=== PATIENT | female | born 2000 | race Two or more races ===

== ENCOUNTER 2022-11-10 09:03 | Emergency (ER) | payer OTHER ==
[~2022-11-10] VITALS: Ht 154.9 cm; Wt 63.5 kg
== END 2022-11-10 09:45 | disposition home or self-care (01) ==
LOC: ER 09:03
DX: L30.9 Dermatitis, unspecified (principal); Z91.018 Allergy to other foods; Z88.9 Allergy status to unspecified drugs, medicaments and biological substances

== ENCOUNTER 2023-04-18 16:35 | Emergency (ER) | payer OTHER ==
[~2023-04-18] VITALS: Ht 154.9 cm; Wt 52.2 kg
[2023-04-18 19:17] LABS: HEMATOCRIT 36.1 % (36.0-45.00); MEAN CELL VOLUME 81.4 fL (80.00-100.00); MEAN CORPUSCULAR HGB CONC 33.2 g/dl (32.0-36.0); PLATELET COUNT 291 K/uL (150-450); RED BLOOD COUNT 4.43 M/uL (4.00-6.00)
[2023-04-18 19:19] LABS: RED CELL DISTRIBUTION WIDTH 18.3 % (11.5-14.5)
[2023-04-18 19:20] LABS: PH,URINE 6.5 (5.0-8.0); URINE APPEARANCE Clear; URINE BILIRRUBIN Negative (NEGATIVE); URINE BLOOD Trace; URINE COLOR Yellow; URINE GLUCOSE Negative (NEGATIVE); URINE LEUKOCYTE Small; URINE NITRATE Negative; URINE PROTEIN Negative (NEGATIVE)
[2023-04-18 19:27] LABS: URINE BACTERIA 845.2 uL (0.0-1933); URINE EPITHELIAL CELLS 7.8 uL (0.0-38.8); URINE WBC 146.2 uL (0.0-23.2)
[2023-04-18 19:29] LABS: URINE RBC 1.1 uL (0.0-20.8)
[2023-04-18 19:53] LABS: BILIRUBIN TOTAL 0.25 mg/dL (0.3-1.2); CALCIUM 9.2 mg/dL (8.5-10.1); CREATININE SERUM 0.68 mg/dL (0.55-1.02); GFR 107.22; GLOBULINA 3.5 G/DL (2.4-3.5); POTASSIUM 4.01 mEq/L (3.5-5.1); TOTAL PROTEIN 7.5 gm/dL (6.4-8.2)
[2023-04-18] MEDS ORDERED: BACTRIM DS TAB1 EACH PO (20:13)
== END 2023-04-18 20:24 | disposition home or self-care (01) ==
LOC: ER 16:35
PROVIDERS: General Practice
DX: N39.0 Urinary tract infection, site not specified (principal); Z88.8 Allergy status to other drugs, medicaments and biological substances; Z20.822 Contact with and (suspected) exposure to COVID-19

== ENCOUNTER 2024-02-05 01:25 | Emergency (ER) | payer OTHER ==
[~2024-02-05] VITALS: Ht 154.9 cm; Wt 46.7 kg
[~2024-02-05 01:25] MED LIST: BACTRIM DS TAB1 EACH PO
[2024-02-05] MEDS ORDERED: ADDERALL 20 MG20 MG PO (01:31)
[2024-02-05] MEDS ORDERED: RESTORIL30 MG PO (01:31)
[2024-02-05] MEDS ORDERED: KETOROLAC TROMETHAMINE 60 MG VIAL IM STA (03:10)
[2024-02-05] MEDS ORDERED: KETOROLAC TROMETHAMINE 60 MG VIAL IM ONE (03:19)
[2024-02-05] MEDS ORDERED: KETO10TA2 PO (04:07)
== END 2024-02-05 04:45 ==
LOC: ER 01:26
DX: S16.1XXA Strain of muscle, fascia and tendon at neck level, initial encounter (principal); S09.90XA Unspecified injury of head, initial encounter; S29.9XXA Unspecified injury of thorax, initial encounter; W19.XXXA Unspecified fall, initial encounter; Y93.52 Activity, horseback riding; Y92.89 Other specified places as the place of occurrence of the external cause; Y99.8 Other external cause status; Z91.018 Allergy to other foods

== ENCOUNTER 2024-02-08 08:18 | Emergency (ER) | payer OTHER ==
[~2024-02-08] VITALS: Ht 154.9 cm; Wt 46.7 kg
[~2024-02-08 08:18] MED LIST changes: +ADDERALL 20 MG20 MG PO; +KETO10TA2 PO; +RESTORIL30 MG PO
[2024-02-08] MEDS ORDERED: KETOROLAC TROMETHAMINE 30 MG VIAL IM ONE (09:30)
[2024-02-08] MEDS ORDERED: KETOROLAC TROMETHAMINE 30 MG VIAL ONE (09:32)
== END 2024-02-08 15:00 | disposition home or self-care (01) ==
LOC: ER 08:20
DX: S29.8XXA Other specified injuries of thorax, initial encounter (principal); W19.XXXA Unspecified fall, initial encounter; Y93.52 Activity, horseback riding; Y92.89 Other specified places as the place of occurrence of the external cause; Y99.8 Other external cause status; Z91.013 Allergy to seafood

== ENCOUNTER 2024-09-08 16:57 | Emergency (ER) | payer OTHER ==
[~2024-09-08] VITALS: Ht 154.9 cm; Wt 61.2 kg
[2024-09-08] MEDS ORDERED: OxyCODONE HCL/APAP UD (PERCOCET) PO ONE (17:30)
[2024-09-08] MEDS ORDERED: TRAMADOL HCL 50 MG TABLET PO ONE (18:30)
== END 2024-09-08 19:28 | disposition home or self-care (01) ==
LOC: ER 16:57
DX: S82.291A Other fracture of shaft of right tibia, initial encounter for closed fracture (principal); V80.010A Animal-rider injured by fall from or being thrown from horse in noncollision accident, initial encounter; Y93.89 Activity, other specified; Y92.89 Other specified places as the place of occurrence of the external cause; Y99.8 Other external cause status; Z91.013 Allergy to seafood

== ENCOUNTER 2024-09-09 12:58 | Outpatient (CLI) | payer OTHER | END 2024-09-09 13:09 | disposition home or self-care (01) | LOC: RAD 12:58 | PROVIDERS: ATTEND Orthopaedic Surgery | DX: S82.871A Displaced pilon fracture of right tibia, initial encounter for closed fracture (principal) ==

== ENCOUNTER 2024-09-13 12:30 | Outpatient (CLI) | payer OTHER | END 2024-09-13 12:35 | disposition home or self-care (01) | LOC: TOM 12:30 | PROVIDERS: ATTEND Orthopaedic Surgery | DX: S82.871A Displaced pilon fracture of right tibia, initial encounter for closed fracture (principal) ==

== ENCOUNTER 2024-09-20 11:08 | Outpatient (CLI) | payer OTHER | END 2024-09-20 11:20 | disposition home or self-care (01) | LOC: RAD 11:08 | PROVIDERS: ATTEND Orthopaedic Surgery | DX: S82.871A Displaced pilon fracture of right tibia, initial encounter for closed fracture (principal) ==

== ENCOUNTER 2024-09-28 09:49 | Outpatient (CLI) | payer OTHER | END 2024-09-28 09:57 | disposition home or self-care (01) | LOC: RAD 09:49 | PROVIDERS: ATTEND Orthopaedic Surgery | DX: S82.871A Displaced pilon fracture of right tibia, initial encounter for closed fracture (principal); X58.XXXA Exposure to other specified factors, initial encounter; Y93.9 Activity, unspecified; Y92.9 Unspecified place or not applicable; Y99.9 Unspecified external cause status ==

== ENCOUNTER 2024-10-27 10:31 | Outpatient (CLI) | payer OTHER | END 2024-10-27 10:37 | disposition home or self-care (01) | LOC: RAD 10:31 | PROVIDERS: ATTEND Orthopaedic Surgery | DX: S82.871A Displaced pilon fracture of right tibia, initial encounter for closed fracture (principal) ==

== ENCOUNTER 2024-12-01 10:10 | Outpatient (CLI) | payer OTHER | END 2024-12-01 10:29 | disposition home or self-care (01) | LOC: RAD 10:10 | PROVIDERS: ATTEND Orthopaedic Surgery | DX: S82.871D Displaced pilon fracture of right tibia, subsequent encounter for closed fracture with routine healing (principal) ==

== ENCOUNTER 2024-12-30 11:57 | Outpatient (CLI) | payer OTHER | END 2024-12-30 12:04 | disposition home or self-care (01) | LOC: RAD 11:57 | PROVIDERS: ATTEND Orthopaedic Surgery | DX: S82.871D Displaced pilon fracture of right tibia, subsequent encounter for closed fracture with routine healing (principal) ==

== ENCOUNTER 2025-01-21 13:37 | Emergency (ER) | payer OTHER ==
[~2025-01-21] VITALS: Ht 154.9 cm; Wt 56.2 kg
[2025-01-21] MEDS ORDERED: EFFEXOR XR37.5 MG PO (13:40)
[2025-01-21] MEDS ORDERED: CLONAZEPAM0.125 MG (13:40)
[2025-01-21] MEDS ORDERED: OLANZAPINE2.5 MG PO (13:41)
[2025-01-21] MEDS ORDERED: KETOROLAC TROMETHAMINE 30 MG VIAL IM ONE (15:15)
[2025-01-21] MEDS ORDERED: DICLOFENAC SODI50 MG PO (15:39)
== END 2025-01-21 16:15 | disposition home or self-care (01) ==
LOC: ER 13:37
DX: S93.602A Unspecified sprain of left foot, initial encounter (principal); X58.XXXA Exposure to other specified factors, initial encounter; Y93.89 Activity, other specified; Y92.89 Other specified places as the place of occurrence of the external cause; Y99.9 Unspecified external cause status; Z88.8 Allergy status to other drugs, medicaments and biological substances; Z87.09 Personal history of other diseases of the respiratory system; Z91.013 Allergy to seafood

== ENCOUNTER 2025-04-07 11:17 | Inpatient (IN) | payer OTHER ==
[~2025-04-07] VITALS: Ht 152.4 cm; Wt 59.0 kg
[~2025-04-07 11:17] MED LIST changes: +CLONAZEPAM0.125 MG; +DICLOFENAC SODI50 MG PO; +EFFEXOR XR37.5 MG PO; +OLANZAPINE2.5 MG PO
[2025-04-07] MEDS ORDERED: LEVALBUTEROL HCL 1.25 MG/3 ML SOLUTION IH ONE ×2 (11:36→17:53)
[2025-04-07] MEDS ORDERED: IPRATROPIUM BROMIDE 0.5 MG/2.5 ML AMPUL.NEB IH ONE ×2 (11:37→17:53)
[2025-04-07] MEDS ORDERED: CEFTRIAXONE SODIUM 1,000 MG VIAL IV ONE (11:45)
[2025-04-07] MEDS ORDERED: LEVALBUTEROL HCL 1.25 MG/3 ML SOLUTION IH SCH ×2 (11:45→21:00)
[2025-04-07] MEDS ORDERED: METHYLPREDNISOLONE SOD SUCC 125 MG VIAL IV ONE (11:45)
[2025-04-07] MEDS ORDERED: IPRATROPIUM BROMIDE 0.5 MG/2.5 ML AMPUL.NEB IH SCH ×2 (11:45→21:00)
[2025-04-07] MEDS ORDERED: MAGNESIUM SULFATE IN WATER 50 ML IV ONE (11:45)
[2025-04-07] MEDS ORDERED: MAGNESIUM SULFATE 50% 1,000 MG/2 ML VIAL ONE (11:50)
[2025-04-07] MEDS ORDERED: CEFTRIAXONE SODIUM 1,000 MG VIAL ONE ×2 (11:50→12:03)
--- NOTE | 2025-04-07 12:28 | NUR ---
SE RECIBE PACIENTE ALERTA Y ORIENTADA X3, AL MOMENTO PRESENTANDO DIFICULTAD RESPIRATORIA, SE COLOCA PACIENTE EN MONITOR CARDIACO Y OXIMETRIA DE PULSO, SE REALIZA EKG, SE COLOCA CANULA NASAL Y SE NOTIFICA A PERSONAL DE TERAPIA. SE MANTIENE BAJO OBSRVACION PARA CONTINUACION DE TRATAMIENTO.
[2025-04-07 12:39] LABS: BASO % 0.1 % (0.1-1.2); EOS # 0.11 (0.04-0.54); EOS % 0.5 % (0.7-7.0); LYMPH # 1.93 (1.18-3.74); LYMPH % 9.0 % (19.3-53.1); MEAN PLATELET VOLUME 9.90 fl (9.4-12.4); MONO # 0.70 (0.24-0.82); MONO % 3.2 % (4.7-12.5); NEUT # 18.69 (1.56-6.13); NEUT % 86.7 % (34.0-71.1); RED CELL DISTRIBUTION WIDTH 13.7 % (11.6-14.4)
--- NOTE | 2025-04-07 12:41 | NUR ---
SE REALIZA COLECCION DE MUESTRAS MAUREEN ORDEN MEDICA Y SE MANTIENE BAJO OBSERVACION.
[2025-04-07 12:44] LABS: ERYTHROCYTE SEDIMENTATION RATE 27 mm/hr (0-20)
[2025-04-07 13:02] LABS: BUN CREA RATIO 10.0 (7.0-25.0); CREATININE SERUM 0.91 mg/dL (0.55-1.02); GFR 75.32; GLUCOSE FASTING 105.0 mg/dL (65-100); OSMOLALITY SERUM 280.0 MOSM/KG (275-295)
[2025-04-07 13:05] LABS: INR 1.04
[2025-04-07 14:13] LABS: COVID-19 AG NEGATIVE (NEGATIVE)
--- NOTE | 2025-04-07 15:16 | NUR ---
SE RECIBE PTE ALERTA Y ORIENTADA X3 EN DESCANSO EN CAMA CON BARANDAS LEVADAS. CONECTADA A MONITOR CARDIACO Y SATUROMETRO. CANALIZADA EN BRAZO DERECHO CON ANGIO #18 PATENTE NIRU DE EDEMA Y ENROJEICMIENTO EN H/L.PTE NO REFIERE NI QUEJAS NI MOESLTIA AL MOMENTO. SE MANTIENE BAJO OBSERVACION POR TRATAMIENTO. PENDIENTE CONSULTA CON DR. MENJIVAR.
[2025-04-07] MEDS ORDERED: ACETAMINOPHEN 500 MG GEL..CAP PO ONE (16:24)
[2025-04-07] MEDS ORDERED: ACETAMINOPHEN 325 MG TABLET PO PRN (17:30)
[2025-04-07] MEDS ORDERED: ONDANSETRON HCL 4 MG in 0.9 % SODIUM CHLORIDE 50 ML IV PRN (17:30)
[2025-04-07] MEDS ORDERED: METHYLPREDNISOLONE SOD SUCC 40 MG VIAL ONE (17:53)
[2025-04-07] MEDS ORDERED: METHYLPREDNISOLONE SOD SUCC 40 MG VIAL IV SCH (18:00)
[2025-04-07 22:48] VITALS: O2SAT 92
[2025-04-08] VITALS (9 sets, daily range): BP systolic 95–114; BP diastolic 57–76; O2SAT 91–97
[2025-04-08 06:33] LABS: BASO % 0.1 % (0.1-1.2); EOS # 0.00 (0.04-0.54); EOS % 0.0 % (0.7-7.0); LYMPH # 1.04 (1.18-3.74); LYMPH % 4.9 % (19.3-53.1); MEAN PLATELET VOLUME 10.30 fl (9.4-12.4); MONO # 0.68 (0.24-0.82); MONO % 3.2 % (4.7-12.5); NEUT # 19.53 (1.56-6.13); NEUT % 91.3 % (34.0-71.1); RED CELL DISTRIBUTION WIDTH 14.0 % (11.6-14.4)
[2025-04-08 06:56] LABS: BUN CREA RATIO 22.0 (7.0-25.0); CREATININE SERUM 0.72 mg/dL (0.55-1.02); GFR 98.69; GLUCOSE FASTING 112.0 mg/dL (65-100); OSMOLALITY SERUM 281.0 MOSM/KG (275-295)
[2025-04-08] MEDS ORDERED: ACETAMINOPHEN 500 MG GEL..CAP PO PRN (07:45)
[2025-04-08 07:49] LABS: ERYTHROCYTE SEDIMENTATION RATE 23 mm/hr (0-20)
[2025-04-08] MEDS ORDERED: AZITHROMYCIN 500 MG VIAL IV ONE (08:02)
[2025-04-08] MEDS ORDERED: AZITHROMYCIN 500 MG VIAL IV SCH (09:00)
[2025-04-08] MEDS ORDERED: CEFTRIAXONE SODIUM 2,000 MG in 0.9 % SODIUM CHLORIDE 100 ML IV SCH (09:00)
[2025-04-08] MEDS ORDERED: FAMOTIDINE/PF 20 MG/2 ML VIAL IV SCH (09:00)
[2025-04-08] MEDS ORDERED: MONTELUKAST SODIUM 10 MG TABLET PO SCH (17:00)
[2025-04-08] MEDS ORDERED: LACTOBACILLUS ACIDOPHILUS 1 CAP CAP PO SCH (17:00)
[2025-04-09 03:34] VITALS: BP 111/69; O2SAT 97
[2025-04-09 04:00] VITALS: O2SAT 96
[2025-04-09] MEDS ORDERED: AZITHROMYCIN 500 MG VIAL IV ONE (07:44)
[2025-04-09 08:19] VITALS: BP 116/73; O2SAT 93
[2025-04-09] MEDS ORDERED: KETOROLAC TROMETHAMINE 10 MG TABLET PO PRN (10:15)
[2025-04-09 18:58] VITALS: BP 117/77
[2025-04-10] VITALS (7 sets, daily range): BP systolic 119–126; BP diastolic 68–80; O2SAT 94–99
[2025-04-10] MEDS ORDERED: AZITHROMYCIN 500 MG VIAL IV ONE (07:48)
[2025-04-10] MEDS ORDERED: POLYETHYLENE GLYCOL 3350 17 GM BLIST.PACK PO STA (15:52)
[2025-04-11] VITALS (9 sets, daily range): BP systolic 110–121; BP diastolic 73–82; O2SAT 93–99
[2025-04-11] MEDS ORDERED: AZITHROMYCIN 500 MG VIAL IV ONE (08:26)
[2025-04-11] MEDS ORDERED: POLYETHYLENE GLYCOL 3350 17 GM BLIST.PACK PO SCH (09:00)
[2025-04-11] MEDS ORDERED: METHYLPREDNISOLONE SOD SUCC 40 MG VIAL IV SCH (17:00)
[2025-04-11] MEDS ORDERED: BUDESONIDE 0.5 MG/2 ML AMPUL.NEB IH SCH (17:00)
[2025-04-12] VITALS (9 sets, daily range): BP systolic 111–130; BP diastolic 72–85; O2SAT 94–100
[2025-04-12] MEDS ORDERED: AZITHROMYCIN 500 MG VIAL IV ONE (07:35)
[2025-04-12] MEDS ORDERED: LACTULOSE 20 G/30 ML BLIST.PACK PO NR (11:15)
[2025-04-12] MEDS ORDERED: DOCUSATE SODIUM 100MG CAP PO SCH (17:00)
[2025-04-13 00:27] VITALS: O2SAT 96
[2025-04-13 03:33] VITALS: BP 122/78; O2SAT 99
[2025-04-13 04:53] VITALS: O2SAT 95
[2025-04-13 08:46] VITALS: O2SAT 94
[2025-04-13] MEDS ORDERED: AZITHROMYCIN 500 MG VIAL IV ONE (08:56)
[2025-04-13 10:45] VITALS: BP 124/86; O2SAT 96
[2025-04-13] MEDS ORDERED: LACTULOSE 20 G/30 ML BLIST.PACK PO SCH (13:00)
[2025-04-13 20:26] VITALS: BP 120/80; O2SAT 97
[2025-04-13] MEDS ORDERED: NA PHOS,M-B/NA PHOS,DI-BA 1 BOTTLE ENEMA RECTAL ONE (23:00)
[2025-04-14 03:23] VITALS: BP 121/79; O2SAT 96
[2025-04-14] MEDS ORDERED: AZITHROMYCIN 500 MG VIAL IV ONE (08:25)
[2025-04-14 10:17] VITALS: BP 121/77; O2SAT 97
== END 2025-04-14 12:09 | disposition home or self-care (01) | DRG 202 ==
LOC: ER 11:18 → MEDJ 19:15
PROVIDERS: General Practice; ADMIT Internal Medicine; ATTEND Internal Medicine
PROC: BB24ZZZ Computerized Tomography (CT Scan) of Bilateral Lungs (ICD-10-PCS; principal; 2025-04-07)
PROC: 3E0F7GC Introduction of Other Therapeutic Substance into Respiratory Tract, Via Natural or Artificial Opening (ICD-10-PCS; 2025-04-07)
PROC: 4A12X4Z Monitoring of Cardiac Electrical Activity, External Approach (ICD-10-PCS; 2025-04-07)
PROC: BB24ZZZ Computerized Tomography (CT Scan) of Bilateral Lungs (ICD-10-PCS; 2025-04-11)
DX: J45.901 Unspecified asthma with (acute) exacerbation (principal); D68.59 Other primary thrombophilia; J98.2 Interstitial emphysema; D72.829 Elevated white blood cell count, unspecified

== ENCOUNTER 2025-04-16 02:50 | Emergency (ER) | payer OTHER ==
[~2025-04-16] VITALS: Ht 154.9 cm; Wt 59.0 kg
[2025-04-16] MEDS ORDERED: ONDANSETRON HCL 2 MG/ML VIAL IV STA (03:42)
[2025-04-16] MEDS ORDERED: FAMOtidine 10 MG/ML (4ML VIAL) IV PUSH STA (03:42)
[2025-04-16] MEDS ORDERED: SODIUM CL 0.9% 25 ML IV.SOLN. IV STA (03:42)
[2025-04-16] MEDS ORDERED: METHYLPREDNISOLONE SOD SUCC 125 MG VIAL IV STA (03:43)
[2025-04-16] MEDS ORDERED: ALBUTEROL SULFATE 3 ML/2.5 MG AMPUL.NEB IH STA (03:43)
[2025-04-16] MEDS ORDERED: ALBUTEROL SULFATE 3 ML/2.5 MG AMPUL.NEB IH ONE (04:13)
[2025-04-16] MEDS ORDERED: ONDANSETRON HCL 2 MG/ML VIAL ONE (04:33)
[2025-04-16] MEDS ORDERED: METHYLPREDNISOLONE SOD SUCC 125 MG VIAL ONE (04:34)
[2025-04-16] MEDS ORDERED: WATER FOR INJ.,BACTERIOSTATIC 30 ML VIAL IJ ONE (04:34)
[2025-04-16] MEDS ORDERED: FAMOTIDINE/PF 20 MG/2 ML VIAL ONE (04:34)
[2025-04-16 05:12] LABS: BASO % 0.3 % (0.1-1.2); EOS # 0.22 (0.04-0.54); EOS % 1.0 % (0.7-7.0); LYMPH # 0.90 (1.18-3.74); LYMPH % 4.1 % (19.3-53.1); MEAN PLATELET VOLUME 9.50 fl (9.4-12.4); MONO # 0.85 (0.24-0.82); MONO % 3.9 % (4.7-12.5); NEUT # 19.64 (1.56-6.13); NEUT % 88.9 % (34.0-71.1); RED CELL DISTRIBUTION WIDTH 13.3 % (11.6-14.4)
[2025-04-16 05:18] LABS: COVID-19 AG NEGATIVE (NEGATIVE)
[2025-04-16 05:27] LABS: BUN CREA RATIO 34.0 (7.0-25.0); CREATININE SERUM 0.91 mg/dL (0.55-1.02); GFR 75.32; GLUCOSE FASTING 112.0 mg/dL (65-100); OSMOLALITY SERUM 283.0 MOSM/KG (275-295)
[2025-04-16 09:51] LABS: URINE APPEARANCE Clear; URINE BILIRRUBIN Negative (NEGATIVE); URINE BLOOD Large; URINE COLOR Yellow; URINE GLUCOSE Negative (NEGATIVE); URINE KETONE Trace (NEGATIVE); URINE LEUKOCYTE Trace; URINE NITRATE Negative; URINE PROTEIN Trace (NEGATIVE); URINE UROBILINOGEN 0.2 E.U./dl
[2025-04-16 09:54] LABS: URINE BACTERIA 800.4 uL (0.0-1933); URINE EPITHELIAL CELLS 25.9 uL (0.0-38.8); URINE RBC 326.1 uL (0.0-20.8); URINE WBC 15.9 uL (0.0-23.2)
[2025-04-16 09:56] LABS: URINE CAST 0.00 uL (0.0-1.40)
[2025-04-16] MEDS ORDERED: 0.9 % SODIUM CHLORIDE 1,000 ML IV STA (11:01)
[2025-04-16] MEDS ORDERED: BUTALB/ACETAMINOPHEN/CAFFEINE 1 TAB TABLET PO STA (11:02)
[2025-04-16] MEDS ORDERED: BUTALB/ACETAMINOPHEN/CAFFEINE 1 TAB TABLET PO ONE (11:37)
[2025-04-16 12:23] LABS: BASO % 0.4 % (0.1-1.2); EOS # 0.02 (0.04-0.54); EOS % 0.1 % (0.7-7.0); LYMPH # 0.49 (1.18-3.74); LYMPH % 2.3 % (19.3-53.1); MEAN PLATELET VOLUME 9.60 fl (9.4-12.4); MONO # 0.33 (0.24-0.82); MONO % 1.5 % (4.7-12.5); NEUT # 20.25 (1.56-6.13); NEUT % 94.5 % (34.0-71.1); RED CELL DISTRIBUTION WIDTH 13.8 % (11.6-14.4)
[2025-04-16] MEDS ORDERED: ALBUTEROL2.5 MG/3 M IH (14:23)
[2025-04-16] MEDS ORDERED: BUTALB-ACETAMI1 EACH PO (14:23)
[2025-04-16] MEDS ORDERED: MEDROLPACK PO (14:23)
[2025-04-16] MEDS ORDERED: BUDESONIDE0.5 MG/2 M IH (14:23)
== END 2025-04-17 02:03 | disposition home or self-care (01) ==
LOC: ER 02:50
PROVIDERS: General Practice; Physician Assistant Medical
DX: J45.901 Unspecified asthma with (acute) exacerbation (principal); Z20.822 Contact with and (suspected) exposure to COVID-19; Z91.013 Allergy to seafood; Z88.8 Allergy status to other drugs, medicaments and biological substances; F32.89 Other specified depressive episodes; F41.8 Other specified anxiety disorders; F12.10 Cannabis abuse, uncomplicated; K52.89 Other specified noninfective gastroenteritis and colitis